=== PATIENT | female | born 1970 | race Caucasian/White ===

== ENCOUNTER 2023-12-24 16:07 | Emergency (ER) | payer BC, SELFPAY ==
[2023-12-24 16:42] VITALS: BP 152/97
[2023-12-24] MEDS: NSS 500 IV (18:47)
[2023-12-24] MEDS: TORADOL 15 MG IV (18:47)
[2023-12-24 18:49] VITALS: BMI 25.5
[2023-12-24 18:58] LABS: % Basophils 0.6 % (0-2); % Eosinophils 0.5 % (0-6); % Immature Granulocytes 0.5 % (0-0.5); % Lymphocytes 25.3 % (20.5-51.1); % Monocytes 6.5 % (1.7-9.3); % Neutrophils 66.6 % (42.2-75.2); Absolute Basophils 0.1 10^3/uL (0-0.2); Absolute Lymphocytes 2.2 10^3/uL (1.2-3.4); Absolute Monocytes 0.6 10^3/uL (0.1-0.6); Absolute Neutrophils 5.7 10^3/uL (1.4-6.5); Hemoglobin 14.3 g/dL (12.0-16.0); Mean Corp Hgb Conc. 34.9 g/dL (33.0-37.0); Mean Corpuscular Volume 86.1 fL (81.0-99.0); Mean Platelet Volume 10.3 fL (7.4-10.4); Nucleated Red Blood Cells % 0 %; Platelet Count 281 10^3/uL (130-400); Red Blood Cell Count 4.76 10^6/uL (4.20-5.40); Red Cell Dist. Width 12.7 % (11.5-14.5); White Blood Cell Count 8.5 10^3/uL (4.8-10.8)
--- NOTE | 2023-12-24 19:04 | ED.GENMED ---
History of Present Illness
General
Chief Complaint: Chest Pain
Source: patient
Exam Limitations: none
Time Seen by Provider: 12/24/23 18:16
Nursing documentation reviewed up to this point in time: agreed with
Travel History
Have you had any contact with someone who has COVID-19?: No
Do you have any symptoms of coronavirus? Fever > 100 degrees, chills, cough, shortness of breath, sore throat, loss of taste or smell, muscle aches, or headache?: Yes
Symptoms:: covid +
History of Present Illness
History of Present Illness:
pt is a 53 y/o F with ho anxiety, htn
here with right lower and upper chest pain/shoulder pain since 4 am
pt says she thinks she got up to use the bathroom and then noticed the pain. it is worse with lying down and sitting and better with standing
it is painful to take a deep breath but she doesn't feel SOB
no fever, chills, vomiting, cough, diarrhea, weakness, ysncope, racing heart rate, rash, trauma
pt had covid tested pos 1 week ago
took motrin this morning whch helped slightly but she hasnt had it in hours.
no h/o previous DVT pe
no recent travle
no recent surgery
no OCPs.
Past History
Past History
ED Past Medical History: HTN
ED Past Surgical History:
Social History
Tobacco: Non-smoker
Personal:
Living: with family
Employment: Employed
Review of Systems
Review of Systems
Allergies reviewed?: Yes
All Other Systems: Not applicable
Phy Exam
Physical Exam
Physical Exam:
GENERAL: Alert , in no apparent distress, standing
EYE: pupils equal and reactive
NECK: Supple
ENT: o/p clr, mmm.
CARDIAC: Regular rate and rhythm .no edema
LUNGS: Clear breath sounds bilaterally, no acute respiratory distress, no wheezes/rales/rhonchi;
splinting with deep breathing
no chest wall tnedneres
ABDOMEN: Soft, + RUQ tenerness, + stevenson's sign;
no r/g, no cvat, normal bowel sounds
NEUROLOGICAL: Alert and oriented, no focal neuro deficits
SKIN: Warm and dry, skin intact.
MUSCULOSKELETAL: No edema, well perfused. neg ramya's sign
PSYCH: Normal and appropriate interaction.
Scores
Heart Score for Chest Pain Patients
STEMI patient?: No
History: Slightly or Non-Suspicious
ECG: Normal
Age: </= 45 years
Risk Factors: 1 or 2 Risk Factors
Troponin: </= Normal Limit
Heart Score for Chest Pain Patients: 1
Heart Score Risk: 2.5% MACE over next 6 weeks
Course
Orders/Labs/Results
Orders:
Orders
12/24/23 16:09
EKG [Electrocardiogram (*1)] Urgent
Reason for Study: Chest Pain
EKG- Treatment ONCE
12/24/23 16:51
Chest [CR Chest - 2 Views ] Urgent
Comment:
Reason For Exam: pain wtih inspiration
12/24/23 18:22
Cardiac Monitoring- Treatment ONCE
0.9% Sodium Chloride 500 ml [Nss] 500 ml IV BOLUS
Ketorolac [Toradol] 15 mg IV NOW STA
12/24/23 18:23
Test Result ONCE
12/24/23 18:47
Complete Blood Count/With Diff Urgent
Comprehensive Metabolic Panel Urgent
D-Dimer Urgent
HCG, Serum Qualitative Screen Urgent
Lipase Urgent
Troponin I Urgent
12/24/23 19:20
US Abdomen Complete/Upper Urgent
Comment:
Reason For Exam: upper abd pain to shoulder
12/24/23 21:05
Azithromycin [Zithromax] 500 mg PO NOW STA
Doxycycline [Vibramycin] 100 mg PO NOW STA
12/24/23 18:47
12/24/23 18:47
Vital Signs
Initial and Last Documented VS:
Initial Vital Signs
Temp Pulse Resp BP Pulse Ox
97.6 F 69 20 152/97 99
12/24/23 16:42 12/24/23 16:42 12/24/23 16:42 12/24/23 16:42 12/24/23 16:42
Last Documented Vital Signs
Temp Pulse Resp BP Pulse Ox
97.6 F 80 20 117/80 97
12/24/23 16:42 12/24/23 21:15 12/24/23 21:15 12/24/23 21:00 12/24/23 21:15
MDM/Problems Addressed
Differential Diagnosis Includes:
pleurisy, costochondritis, pna, PE, gallbladder disase
MDM/Problems Addressed:
53 y/o F with h/o htn, and anxiety
had covid 8 days ago
had mild uri sxs, not signficant, did well
minimal coughing
but 4 am today woke up and then felt right sided lower chest and upper shoulder pain worse with deep breahthing and laying gflat
she took motrin a while wearlier which helped some
here pt is having some pain with deep breathing, no tenderness to ribs with palpaiton but some mild tenderness to RUQ
she othewie has no tachycardia, tachypnea, hypoxia
Chest x-ray independently reviewed by me with a very subtle opacity in the left base, the opposite side of where her pain is. Could not explain to patient based on this. So she got a D-dimer which was negative and very reassuring because she is
low risk and an ultrasound of her right upper quadrant which did not show any gallstones. Patient felt significantly better after IV Toradol. I suspect costochondritis. Given the fact that the radiologist can see an opacity in her lungs I felt
that it was best to treat her with antibiotics. Given her COVID recently I will cover her with both the atypical coverage and community-acquired pneumonia with Zithromax and Doxy. Return precautions given
*Critical Care Note
Total Time (30-74mins, 75-104mins- exclusive of procedures): Not Applicable
ED Attending Note
-
Portions of this chart may have been created with voice recognition software.� Occasional wrong word or��sound alike� substitutions may have occurred due to the inherent limitations of voice recognition software.
Discharge Plan
Departure
Patient Disposition: Home (Routine Discharge)
Date of Disposition: 12/24/23
Time of Disposition: 21:03
Patient with high blood pressure during this ER visit?: No
Condition: Fair
Covid-19: Not Applicable
Discharge Problem:
Pneumonia, Costochondritis
Instructions: Costochondritis (DC), Community-Acquired Pneumonia, Adult (DC)
Prescriptions:
New
doxycycline hyclate 100 mg tablet
100 mg PO BID Qty: 14 0RF
azithromycin [Zithromax] 250 mg tablet
250 mg PO DAILY Qty: 4 0RF
No Action
lisinopril 20 MG tablet
20 mg PO DAILY
bupropion HCl 100 MG tablet
100 mg PO DAILY
hydrochlorothiazide 12.5 MG capsule
12.5 mg PO DAILY
hydrocodone-acetaminophen [Vicodin] 1 EACH tablet
1 ea PO Q6HPRN PRN (Reason: pain) Qty: 7 0RF
sulfamethoxazole-trimethoprim 1 TABLET tablet
1 tab PO BID Qty: 14 0RF
tamsulosin 0.4 MG capsule
0.4 mg PO DAILY Qty: 5 0RF
Referrals:
Evelin Castelan, DO [Family Provider] - Follow up in 2-3 days
Activity Restrictions/Additional Instructions:
THIS IS PROBABLY INFLAMMATION IN YOUR CHEST WALL CALLED COSTOCHRONDRITIS
BUT YOU ALSO HAD A POSSIBLITY OF SUBTLE PNEUMONIA.
TAKE DOXYCYCLINE 100 MG TWICE A DAY FOR 7 DAYS
ALSO TAKE ZITHROMAX ONCE A DAY FOR 4 DAYS
STARTING TOMORROW
MOTRIN 600 MG EVERY 8 HOURS FOR PAIN
TYLENOL EVERY 6 HOURS FOR PAIN
WATCH SYMPTOMS
RETURN FOR: SEVERE PAIN, TROUBLE BREATHING, FEVER, PASSING OUT [facility] [place] ONCERNS.
Interventions
Interventions:
*Risk Screen - Suicide Last Done: 12/24/23 17:50
*General Assessment Last Done: 12/24/23 17:50
*Neglect/Abuse Screening Last Done: 12/24/23 17:50
ED- Fall Risk Assessment Last Done: 12/24/23 19:00
*ED COVID-19 Vaccine History Last Done: 12/24/23 19:00
*Nursing Disposition Last Done: 12/24/23 21:24
ED- Cardiac Assessment Last Done: 12/24/23 19:00
Discharge Date and Time
Discharge Date/Time: 12/24/23 21:33
[2023-12-24 19:08] LABS: D-Dimer 0.29 ug/mlFEU (0.00-0.50); HCG, Serum Qualitative Screen Negative
[2023-12-24 19:14] LABS: ALT (SGPT) 19 U/L (0-35); AST (SGOT) 23 U/L (14-36); Albumin 4.8 g/dl (3.5-5.0); Alkaline Phosphatase 91 U/L (38-126); Blood Urea Nitrogen 12 mg/dl (7-17); Calcium 9.8 mg/dl (8.4-10.2); Carbon Dioxide 30 mmol/L (22-30); Chloride 101 mmol/L (98-107); Estimated Creatinine Clearance 74 ml/min; Glucose 91 mg/dl (70-99); Lipase 140 U/L (23-300); Potassium 3.6 mmol/L (3.5-5.1); Sodium 138 mmol/L (135-145); Total Bilirubin 0.7 mg/dl (0.2-1.3); eGFR > 60.00
[2023-12-24 19:21] LABS: Troponin I < 0.012 ng/ml
[2023-12-24 20:09] VITALS: BP 124/85
[2023-12-24 21:00] VITALS: BP 117/80
[2023-12-24] MEDS: ZITHROMAX 500 MG PO (21:18)
[2023-12-24] MEDS: VIBRAMYCIN 100 MG PO (21:18)
== END 2023-12-24 21:33 | disposition home or self-care (01) ==
LOC: EMR 16:07
PROVIDERS: Physician Assistant; EMERGENCY PHYSICIAN Emergency Medicine; FAMILY PHYSICIAN Family Medicine
DX: J18.9 Pneumonia, unspecified organism (principal); M94.0 Chondrocostal junction syndrome [Tietze]; I10 Essential (primary) hypertension; F41.9 Anxiety disorder, unspecified
CPT/HCPCS: 99285; 96374; 96361 ×2; 71046; 76700; 80053; 83690; 84484; 84703; 85025; 85379; 93005

== ENCOUNTER 2025-01-15 18:24 | Emergency (ER) | payer BC, SELFPAY ==
[2025-01-15 18:25] VITALS: BMI 27.1
[2025-01-15 18:35] VITALS: BP 146/96
[2025-01-15 19:00] LABS: % Basophils 0.8 % (0-2); % Eosinophils 1.1 % (0-6); % Immature Granulocytes 0.2 % (0-0.5); % Lymphocytes 40.9 % (20.5-51.1); % Monocytes 9.4 % (1.7-9.3); % Neutrophils 47.6 % (42.2-75.2); Absolute Eosinophils 0.1 10^3/uL (0-0.7); Absolute Lymphocytes 2.2 10^3/uL (1.2-3.4); Absolute Monocytes 0.5 10^3/uL (0.1-0.6); Absolute Neutrophils 2.5 10^3/uL (1.4-6.5); Hematocrit 42.7 % (37.0-47.0); Hemoglobin 14.7 g/dL (12.0-16.0); Mean Corp Hgb Conc. 34.4 g/dL (33.0-37.0); Mean Corpuscular Hgb 30.2 pg (27.0-31.0); Mean Corpuscular Volume 87.9 fL (81.0-99.0); Mean Platelet Volume 10.4 fL (7.4-10.4); Nucleated Red Blood Cells % 0 %; Platelet Count 220 10^3/uL (130-400); Red Blood Cell Count 4.86 10^6/uL (4.20-5.40); Red Cell Dist. Width 12.4 % (11.5-14.5); Urine Albumin Negative (Neg - Trace); Urine Bilirubin Negative (Negative); Urine Character Clear (Clear); Urine Glucose Negative (Negative); Urine Ketone Negative (Negative); Urine Leukocyte Negative (Negative); Urine Nitrite Negative (Negative); Urine Occult Blood Negative (Negative); Urine Urobilinogen Negative (Neg - 1+); White Blood Cell Count 5.3 10^3/uL (4.8-10.8)
[2025-01-15 19:02] LABS: Urine Color Straw
[2025-01-15 19:17] LABS: ALT (SGPT) 18 U/L (0-35); AST (SGOT) 26 U/L (14-36); Albumin 5.1 g/dl (3.5-5.0); Alkaline Phosphatase 80 U/L (38-126); Blood Urea Nitrogen 15 mg/dl (7-17); Carbon Dioxide 31 mmol/L (22-30); Chloride 98 mmol/L (98-107); Glucose 96 mg/dl (70-99); Potassium 3.9 mmol/L (3.5-5.1); Sodium 137 mmol/L (135-145); Total Bilirubin 0.7 mg/dl (0.2-1.3); eGFR > 60.00
[2025-01-15 19:18] LABS: Lipase 202 U/L (23-300)
[2025-01-15 21:25] VITALS: BP 125/84
--- NOTE | 2025-01-15 23:17 | ED.GENMED ---
History of Present Illness
General
Chief Complaint: Abdominal Pain
Source: patient
Exam Limitations: none
Time Seen by Provider: 01/15/25 21:06
Nursing documentation reviewed up to this point in time: agreed with
History of Present Illness
History of Present Illness:
Patient to ED with complaint of RLQ pain. Pain started just [employer]> Denies fever/chlls. Brought to ED by spouse for eval.
Past History
Past History
ED Past Medical History: HTN
ED Past Surgical History:
Social History
Tobacco: Non-smoker
Personal:
Living: with family
Employment: Employed
Review of Systems
Review of Systems
Allergies reviewed?: Yes
All Other Systems: ROS reviewed and negative except as documented in HPI and ROS
Constitutional: Reports no symptoms
EENT: Reports no symptoms
Respiratory: Reports no symptoms
Cardiac: Reports no symptoms
ABD/GI: Reports abdominal pain
: Reports no symptoms
Musculoskeletal: Reports no symptoms
Skin: Reports no symptoms
Neurological: Reports no symptoms
Psychiatric: Reports no symptoms
Phy Exam
General Physical Exam
General Presentation: well appearing and mild distress
General age: appears stated age
General Skin: warm and dry
General Habitus: normal
Cardiovascular Exam
Cardiovascular Exam: regular rate/rhythm
Gastrointestinal Exam
Gastrointestinal Exam: normal bowel sounds, soft, no organomegaly, non distended and no cva tenderness
Palpation: left upper quadrant: No tenderness, left lower quadrant: No tenderness, right upper quadrant: No tenderness and right lower quadrant: Moderate tenderness
Musculoskeletal Exam
Musculoskeletal Exam: full ROM
Skin Exam
Skin Exam: normal color, warm/dry and no rash
Psychiatric Exam
Psychiatric Exam: normal mood/affect
Course
Orders/Labs/Results
Orders:
Orders
01/15/25 18:54
Complete Blood Count/With Diff Urgent
Comprehensive Metabolic Panel Urgent
Lipase Urgent
Urinalysis Reflex To Culture Urgent
Date Specimen was Collected: 01/15/25
Time Specimen was Collected: 18:39
01/15/25 21:14
CT Abd/pelvis W Iv Cont Urgent
Comment:
Reason For Exam: RLQ pain
01/15/25 23:45
Ketorolac [Toradol] 30 mg IV NOW STA
Abnormal Lab Results
01/15/25
18:54
Monocytes % 9.4 H %
(1.7-9.3)
Carbon Dioxide 31 H mmol/L
(22-30)
Albumin 5.1 H g/dl
(3.5-5.0)
01/15/25 18:54
01/15/25 18:54
Vital Signs
Initial and Last Documented VS:
Initial Vital Signs
Temp Pulse Resp BP Pulse Ox
97.7 F 69 16 146/96 100
01/15/25 18:35 01/15/25 18:35 01/15/25 18:35 01/15/25 18:35 01/15/25 18:35
Last Documented Vital Signs
Temp Pulse Resp BP Pulse Ox
97.9 F 79 15 113/77 96
01/15/25 20:00 01/15/25 23:18 01/15/25 22:45 01/15/25 23:18 01/15/25 23:18
*Radiology
Radiology exam reviewed: radiology read reviewed
*Pulse Oximetry
Patient hypoxic: no
Update Note
Update Note:
Patient to ED wtih complaint of RLQ abd pain. States pain diminshed compared to pain [employer]. She remains afebrile. Labs reviewed, WBC normal, LFT's normal. CT results discussed with her. She is aware that appendix was not visualized. Discussed
s/s appendicitis with her. SHe is currently comfortable. Will discharge home and she will ccontinue to monitor. Will follow closely with PCP. Given instructions on s/s to return to ED and she is agreeable to plan.
ED Attending Note
-
Portions of this chart may have been created with voice recognition software.� Occasional wrong word or��sound alike� substitutions may have occurred due to the inherent limitations of voice recognition software.
Discharge Plan
Departure
Patient Disposition: Home (Routine Discharge)
Date of Disposition: 01/15/25
Time of Disposition: 23:46
Patient with high blood pressure during this ER visit?: No
Condition: Good
Covid-19: Not Applicable
Discharge Problem:
Abdominal pain
Instructions: Clear Liquid Diet, Abdominal Pain
Prescriptions:
No Action
lisinopril 20 MG tablet
20 mg PO DAILY
bupropion HCl 100 MG tablet
100 mg PO DAILY
hydrochlorothiazide 12.5 MG capsule
12.5 mg PO DAILY
hydrocodone-acetaminophen [Vicodin] 1 EACH tablet
1 ea PO Q6HPRN PRN (Reason: pain) Qty: 7 0RF
sulfamethoxazole-trimethoprim 1 TABLET tablet
1 tab PO BID Qty: 14 0RF
tamsulosin 0.4 MG capsule
0.4 mg PO DAILY Qty: 5 0RF
doxycycline hyclate 100 mg tablet
100 mg PO BID Qty: 14 0RF
azithromycin [Zithromax] 250 mg tablet
250 mg PO DAILY Qty: 4 0RF
Referrals:
Evelin Castelan, DO [Family Provider] - Tomorrow
Stand Alone Forms: Return to Work
Activity Restrictions/Additional Instructions:
Return to the emergency department immediately for fever/chills, increasing pain, vomiting, or for any further concerns.
Interventions
Interventions:
*General Assessment Last Done: 01/15/25 21:39
*Neglect/Abuse Screening Last Done: 01/15/25 21:51
ED- Fall Risk Assessment Last Done: 01/15/25 23:20
*ED COVID-19 Vaccine History Last Done: 01/15/25 21:51
FB-Gjpiiz-Dtlgiykzal Assessment Last Done: 01/15/25 21:38
Discharge Date and Time
Print Language: [place]
[2025-01-15 23:18] VITALS: BP 113/77
[2025-01-16] VITALS: BP 116/78
[2025-01-16] MEDS: TORADOL 30 MG IV (00:07)
== END 2025-01-16 00:13 | disposition home or self-care (01) ==
LOC: EMR 18:24
PROVIDERS: Emergency Medicine; EMERGENCY PHYSICIAN Emergency Medicine; FAMILY PHYSICIAN Family Medicine
DX: R10.31 Right lower quadrant pain (principal)
CPT/HCPCS: 99285; 96374; 74177; 80053; 81003; 83690; 85025; Q9967

== ENCOUNTER → 2025-01-24 15:42 | Outpatient (REF) | payer BC, SELFPAY | LOC: HWWDC 15:42 | PROVIDERS: ATTENDING PHYSICIAN Family Medicine | DX: Z12.31 Encounter for screening mammogram for malignant neoplasm of breast (principal) | CPT/HCPCS: 77063; 77067 ==